=== PATIENT | female | born 1995 | race Caucasian/White ===

== ENCOUNTER 2020-03-08 16:16 | Emergency (ER) | payer OTHER ==
[~2020-03-08] VITALS: Ht 149.9 cm; Wt 69.4 kg
[~2020-03-08 16:16] MED LIST: AMOX1TAB12 PO; MOTRIN600 MG PO; ZITHROMAX TRI-500 MG PO; [UNRECOGNIZED DRUG - OTHER]
[2020-03-08] MEDS ORDERED: SULFAMETHOXAZO1 EACH (16:34)
== END 2020-03-08 20:31 | disposition home or self-care (01) ==
LOC: ER 16:16
DX: K52.1 Toxic gastroenteritis and colitis (principal); T50.995A Adverse effect of other drugs, medicaments and biological substances, initial encounter

== ENCOUNTER 2022-09-17 08:11 | Emergency (ER) | payer OTHER ==
[~2022-09-17] VITALS: Ht 149.9 cm; Wt 65.8 kg
[~2022-09-17 08:11] MED LIST changes: +SULFAMETHOXAZO1 EACH
== END 2022-09-17 12:31 | disposition home or self-care (01) ==
LOC: ER 08:11
DX: U07.1 COVID-19 (principal); Z88.2 Allergy status to sulfonamides